=== PATIENT | female | born 1980 | race Asian ===

== ENCOUNTER 2016-05-31 19:31 | Emergency (ER) | payer OTHER ==
[~2016-05-31] VITALS: Ht 160 cm; Wt 83.9 kg
--- NOTE | 2016-05-31 19:50 | NUR ---
ER RECORDIST Jelena examining pt in triage room.
[2016-05-31] MEDS ORDERED: KETOROLAC TROMETHAMINE 60 MG/2 ML VIAL IM ONE (20:00)
[2016-05-31] MEDS ORDERED: methylPREDNISolone SOD SUCC/PF 62.5 MG/ML VIAL IVP ONE (20:00)
--- NOTE | 2016-05-31 20:00 | NUR ---
Patient to ER bed 05 to gown for evaluation. Side rails up.
[2016-05-31 20:01] VITALS: BP 137/83; PULSE 16; RESP 16; TEMP 98.4; O2SAT 97
--- NOTE | 2016-05-31 20:05 | NUR ---
pt c/o L ankle pain / x2 weeks, worsening today. Pt reports difficulty walking. Pt has been taking ibuprofen at home with no pain relief. Pt has hx arthritis.
[2016-05-31] MEDS ORDERED: methylPREDNISolone SOD SUCC/PF 62.5 MG/ML VIAL IM ONE (20:15)
[2016-05-31 20:50] VITALS: BP 129/87; PULSE 16; RESP 16; TEMP 98.6; O2SAT 97
--- NOTE | 2016-05-31 20:50 | NUR ---
Patient given written and verbal discharge instructions and verbalizes understanding. ER MD discussed with patient the results and treatment provided. Patient in stable condition. ID arm band removed. Rx of prednisone and naproxen given. Patient educated on pain management and to follow up with PMD. Pain Scale 2/10. Opportunity for questions provided and answered.
== END 2016-05-31 20:50 | disposition home or self-care (01) ==
LOC: SED 19:31
DX: M06.9 Rheumatoid arthritis, unspecified (principal)
CPT/HCPCS: 81025; 96372; 99284; J1885; J2930

== ENCOUNTER 2016-06-16 08:40 | Emergency (ER) | payer OTHER ==
[~2016-06-16] VITALS: Ht 160 cm; Wt 81.6 kg
[2016-06-16 08:44] VITALS: BP 122/76; PULSE 85; RESP 15; TEMP 97.5; O2SAT 99
--- NOTE | 2016-06-16 08:47 | NUR ---
Pt report received from MARGE He. Pt c/o bilat foot pain near great toes. Pt states that she has gout and pain began at 1 AM. No redness noted, no inflammation. Sore to touch.
--- NOTE | 2016-06-16 08:47 | NUR ---
Ambulatory to bed 8
--- NOTE | 2016-06-16 09:03 | NUR ---
Dr. Moscoso at bedside examining patient.
[2016-06-16] MEDS ORDERED: KETOROLAC TROMETHAMINE 60 MG/2 ML VIAL IM ONE (09:15)
[2016-06-16] MEDS ORDERED: PREDNISONE 20 MG TABLET PO ONE (09:15)
[2016-06-16 09:45] VITALS: BP 124/80; PULSE 76; RESP 20; TEMP 97.5; O2SAT 100
--- NOTE | 2016-06-16 09:45 | NUR ---
Patient given written and verbal discharge instructions and verbalizes understanding. ER MD discussed with patient the results and treatment provided. Patient in stable condition. ID arm band removed. Rx of Tramadol and Prednisone given. Patient educated on pain management and to follow up with PMD. Pain Scale 2/10, tolerable. Opportunity for questions provided and answered.
== END 2016-06-16 09:45 | disposition home or self-care (01) ==
LOC: SED 08:40
DX: M06.872 Other specified rheumatoid arthritis, left ankle and foot (principal); M06.871 Other specified rheumatoid arthritis, right ankle and foot
CPT/HCPCS: 81025; 96372; 99283; J1885; J7512